=== PATIENT | female | born 1955 | race Caucasian/White ===

== ENCOUNTER 2020-04-22 08:33 | Emergency (ER) | payer MEDICARE, OTHER ==
[2020-04-22] MEDS ORDERED: PERCOCET TABLET 5/325MG PO STA (08:39)
[2020-04-22] MEDS ORDERED: PERCOCET TABLET 5/325MG ONE (08:40)
--- NOTE | 2020-04-22 09:09 | ERPHSYRPT ---
- History of Present Illness Time Seen by Provider: 04/22/20 08:40 Source: patient Exam Limitations: no limitations Patient Subjective Stated Complaint: Right knee injury Triage Nursing Assessment: Patient brought back to ED via w/c and transferred to bed with assist of 1. Patient A+O X 3. Patient's skin pink, warm and dry. Patient complains of right knee pain since last night 8/10 constant aching, intermittent aching. Patient states she was walking in her kitchen last night and heard a "Pop" and hasn't been able to bear weight this am. Pain is noted to be back side of knee. Right knee noted to be slightly swollen. Physician History: 65 years old female presented in the ER with chief complaint of right knee pain since last night. Patient reports she has been involved in moving her mother back and forth from wheelchair to bed which involves multiple twisting movements of knees and last night she was walking and heard a popping sound in the knee, since then complaining of moderate to severe sharp shooting pain more on the lateral aspect of her right knee with no loss associated or significant swelling. She is unable to have weightbearing since morning. Pain is aggravated with movement/weightbearing and partial relief with being still. No direct trauma. Occurred: yesterday Quality: constant Severity of Pain-Max: moderate Severity of Pain-Current: moderate Lower Extremities Pain: knee: right Modifying Factors: Improves With: immobilization, rest. Worsens With: movement Associated Symptoms: popping sensation Allergies/Adverse Reactions: No Known Drug Allergies Allergy (Unverified 04/22/20 08:41) Hx Influenza Vaccination/Date Given: Yes Hx Pneumococcal Vaccination/Date Given: No Immunizations Up to Date: Yes Travel Risk - International Travel Have you traveled outside of the country in past 3 weeks: No - Coronavirus Screening Are you exhibiting any of the following symptoms?: No Close contact with a COVID-19 positive Pt in past 14-21 Days: No - Review of Systems Constitutional: No Symptoms Eyes: No Symptoms Ears, Nose, & Throat: No Symptoms Respiratory: No Symptoms Cardiac: No Symptoms Abdominal/Gastrointestinal: No Symptoms Musculoskeletal: Arthralgias, Joint Pain Skin: No Symptoms Neurological: No Symptoms - Past Medical History Pertinent Past Medical History: No Neurological History: No Pertinent History ENT History: No Pertinent History Cardiac History: No Pertinent History Respiratory History: No Pertinent History Endocrine Medical History: No Pertinent History Musculoskeletal History: No Pertinent History GI Medical History: No Pertinent History History: No Pertinent History Psycho-Social History: No Pertinent History Female Reproductive Disorders: No Pertinent History - Past Surgical History Past Surgical History: Yes Neuro Surgical History: No Pertinent History Cardiac: No Pertinent History Respiratory: No Pertinent History Gastrointestinal: Cholecystectomy Genitourinary: No Pertinent History Musculoskeletal: No Pertinent History Female Surgical History: No Pertinent History - Social History Smoking Status: Never smoker Exposure to second hand smoke: No Drug Use: none Patient Lives Alone: No - Female History Hx Now: No - Nursing Vital Signs Nursing Vital Signs: Initial Vital Signs Temperature 97.3 F 04/22/20 08:41 Pulse Rate 91 H 04/22/20 08:41 Respiratory Rate 18 04/22/20 08:41 Blood Pressure 179/96 04/22/20 08:41 O2 Sat by Pulse Oximetry 97 04/22/20 08:41 Pain Scale Pain Intensity 4 - Physical Exam General Appearance: no apparent distress Neck Exam: normal inspection, supple, full range of motion Cardiovascular/Respiratory Exam: normal breath sounds, regular rate/rhythm Legs Exam: bilateral leg: normal inspection, normal range of motion, no evidence of injury Knees Exam: right knee: bone tenderness (Minimal tenderness on the lateral aspect and popliteal fossa), pain, soft tissue tenderness, left knee: non- tender, normal range of motion, bilateral knee: normal inspection, no evidence of injury Ankle Exam: bilateral ankle: non-tender, normal inspection, normal range of motion Neuro/Tendon Exam: normal sensation, normal motor functions, normal tendon functions Mental Status Exam: alert, oriented x 3, cooperative Skin Exam: normal color SpO2 Interpretation: normal SpO2: 97 O2 Delivery: Room Air Ordered Tests: Active Orders 24 hr Category Date Time Status KNEE (3 VIEWS) Stat Exams 04/22/20 08:54 Completed Medication Summary Discontinued Medications Generic Name Dose Route Start Last Admin Trade Name Freq PRN Reason Stop Dose Admin Oxycodone/Acetaminophen 1 tab 04/22/20 08:39 04/22/20 08:41 Percocet Tablet 5/325mg PO 04/22/20 08:40 1 tab STAT STA Administration Oxycodone/Acetaminophen Confirm 04/22/20 08:40 Percocet Tablet 5/325mg Administered 04/22/20 08:41 Dose 1 tab .ROUTE .STK-MED ONE - Progress Progress: improved, pain not gone completely Progress Note: 04/22/20 08:55 She is given pain medication for symptomatic relief. Ruled out fracture dislocation. I believe patient has ligamentous sprain. Placed in a knee immobilizer, crutches and outpatient follow-up with Ortho. Discussed signs symptoms of worsening needing return to ER which she seemed understanding. Counseled pt/family regarding: diagnosis, need for follow-up, rad results - Departure Departure Disposition: Home Clinical Impression: Right knee sprain Qualifiers: Encounter type: initial encounter Involved ligament of knee: unspecified ligament Qualified Code(s): S83.91XA - Sprain of unspecified site of right knee, initial encounter Condition: Stable Critical Care Time: No Referrals: DANGELO RAMOS [ACTIVE STAFF] - Follow Up with PCP/3 days MIKAELA CUEVA NP [NON-STAFF PHY W/O PRIVILEGES] - Follow Up with PCP/3 days Instructions: Knee Sprain (DC), Knee Pain (DC) Additional Instructions: take pain meds as needed, no weight bearing untill evaluated by Orthopedic , return to ER for any worsening . Prescriptions: Hydrocodone/APAP 5-325 Tab^^^ [[place] 5-325 Tablet^^^] 1 tab PO Q6HPRN PRN #10 tablet MDD 6 PRN Reason: Pain
[2020-04-22 09:41] VITALS: BP 142/79; PULSE 78
--- NOTE | 2020-04-22 10:11 | XRAY ---
Indication: Pain following injury. Comparison: None 3 view right knee demonstrates minimal medial joint space narrowing, tiny patella spur, tiny nonspecific effusion, and small posterior fabella. No other bony, articular, or soft tissue abnormalities.
[2020-04-22 16:22] VITALS: O2SAT 97
== END 2020-04-22 09:39 | disposition home or self-care (01) ==
LOC: ED 08:33
DX: S83.91XA Sprain of unspecified site of right knee, initial encounter (principal); M25.561 Pain in right knee; X50.0XXA Overexertion from strenuous movement or load, initial encounter
CPT/HCPCS: 73562; 99283; L1830; A9270-GY